=== PATIENT | male | born 1940 | race Caucasian/White ===

== ENCOUNTER 2020-10-09 17:49 | Inpatient (IN) ==
[2020-10-09] MEDS ORDERED: IOPAMIDOL 100 ML BOTTLE IV ONE (17:50)
--- NOTE | 2020-10-09 18:03 | Cat Scan Report ---
CLINICAL INFORMATION: COMPARISON: None. TECHNIQUE: 2.5 mm helical slices were obtained in the skull base to vertex. Following reconstruction, axial reformatted images were reviewed at bone and parenchymal windows. The exam was performed using radiation dose optimization techniques including, but not limited to, automated exposure control, adjustment of the mA and/or kV according to patient size and use of iterative reconstruction technique. FINDINGS: The ventricles, sulci, fissures, and cisterns are symmetrically enlarged bowel with mild age-related atrophy. No extra-axial fluid collections are identified. Patchy chronic ischemic changes in the cerebral white matter expected for age. A few remote lacunar infarcts in the basal ganglia. There is no evidence of hemorrhage, mass effect, or edema. Bone windows show no osseous abnormality. IMPRESSION: Mild atrophy and chronic ischemic changes in deep cerebral white matter with a few remote lacunar infarcts in the basal ganglia bilaterally. There is no intracerebral hemorrhage edema or other acute finding.. Interpreted and Authenticated by: Miguel Wallace 10/09/20
--- NOTE | 2020-10-09 18:15 | Cat Scan Report ---
CLINICAL INFORMATION: Code stroke COMPARISON: None. TECHNIQUE: 80 cc of Isovue-370 were injected intravenously , and using SmartPrep to maximize cerebral arterial opacification, 0.625 mm helical slices were obtained from the skull base through the cerebral vertex. Following reconstruction , sagittal, coronal and axial reformatted images were processed and reviewed at multiple windows and levels. 3D volume rendered and MIP images were acquired at a independent workstation. The exam was performed using radiation dose optimization techniques including, but not limited to, automated exposure control, adjustment of the mA and/or kV according to patient size and use of iterative reconstruction technique. FINDINGS: The intracranial internal carotid, vertebral, basilar, anterior middle and posterior cerebral arteries are well-opacified and normal in contour and caliber no evidence of significant stenosis or occlusion. IMPRESSION: Normal Interpreted and Authenticated by: Miguel Wallace 10/09/20
--- NOTE | 2020-10-09 18:24 | Cat Scan Report ---
CLINICAL INFORMATION: Code stroke COMPARISON: None. TECHNIQUE: 80 cc of Isovue-370 were injected intravenously, and using SmartPrep to maximize arterial opacification, 0.625 mm helical slices were obtained from the thoracic aortic arch through the t[place] of [place]. Following reconstruction, 2.5mm sagittal, coronal and axial reformatted images were processed and reviewed at standard and bone algorithm/window. 3-D volume rendered, CPR and MIP images were processed using a Plair work station.The exam was performed using radiation dose optimization techniques including, but not limited to, automated exposure control, adjustment of the mA and/or kV according to patient size and use of iterative reconstruction technique. FINDINGS: The thoracic aortic arch is normal in diameter with diffuse intimal thickening. Aortic branching is conventional. The brachiocephalic, both subclavian, both vertebral, both common internal and external carotid arteries are widely patent. No soft tissue abnormality. Lung apices are normal. IMPRESSION: Normal Interpreted and Authenticated by: Miguel Wallace 10/09/20
[2020-10-09 18:30] LABS: POC INR 1.3 (0.8-1.2); POC Pro Time 15.5 sec (11.9-14.5)
[2020-10-09 18:31] LABS: POC Creatinine 1.6 mg/dL (0.6-1.2)
[2020-10-09 18:48] LABS: Basophils # (Auto) 0.06 K/mcL (0.00-0.20); Basophils % (Auto) 0.8 % (0.0-2.0); Eosinophils # (Auto) 0.29 K/mcL (0.00-0.70); Eosinophils % (Auto) 3.8 % (0.0-7.0); Hematocrit 34.3 % (41.0-55.0); Hemoglobin 11.6 g/dL (13.5-16.5); Lymphocytes # (Auto) 1.91 K/mcL (1.50-4.80); Mean Cell Volume 92.2 fL (80.0-100.0); Mean Corpuscular HGB Conc 33.8 g/dL (31.0-36.0); Mean Platelet Volume 10.2 fL (7.4-10.4); Monocytes # (Auto) 0.63 K/mcL (0.10-0.90); Monocytes % (Auto) 8.2 % (1.0-12.0); Neutrophils % (Auto) 62.2 % (38.0-78.0); Platelet Count 139 K/mcL (140-440); RBC 3.72 M/mcL (4.50-5.90); Red Cell Distribution Width 12.6 % (11.5-14.5); WBC 7.6 K/mcL (4.5-11.0)
[2020-10-09 19:02] LABS: Partial Thromboplastin Time 33.5 sec (20.0-37.0)
[2020-10-09 19:10] LABS: ALT/SGPT 11 U/L (<40); AST/SGOT 15 U/L (<40); Albumin 4.5 gm/dL (3.2-5.2); Albumin/Globulin Ratio 1.7 (1.0-2.3); Alkaline Phosphatase 66 U/L (39-117); Bilirubin,Total 0.4 mg/dL (0.1-1.0); Blood Urea Nitrogen 27 mg/dL (8-23); Calcium 9.2 mg/dL (8.6-10.4); Carbon Dioxide 20 mmol/L (22-30); Chloride 102 mmol/L (96-108); Globulin 2.7 gm/dL (2.2-3.7); Glomerular Filtration Rate 46; Glucose 191 mg/dL (70-105)
[2020-10-09 19:11] LABS: INR 1.4 (0.9-1.1); Prothrombin Time 17.3 sec (11.9-14.5)
[2020-10-09] MEDS ORDERED: ASPIRIN 81 MG TAB.CHEW CHEWED ONE (19:14)
--- NOTE | 2020-10-09 19:38 | Emergency Department Note ---
HPI General Chief complaint: Stroke Symptoms Stated complaint: slurred speech Time Seen by Provider: 10/09/20 17:52 Source: patient and family Mode of arrival: ambulatory Limitations: no limitations History of Present Illness HPI Narrative: Narrative: Patient is an 80-year-old male with history of atrial fibrillation on Coumadin who presented with chief complaint of strokelike symptoms. Approximately 30 minutes prior to arrival noted that the patient started to have struggle finding words and could not type his name into his phone. She then noticed a slight droop on the right side of his face so decided bring him in for further evaluation for stroke. Patient is never had symptoms like this before. O therwise denies any other significant associated symptoms such as fever, headache, cough, shortness of breath, chest pain, nausea, vomiting, abdominal pain, changes in bowel movements or urinary symptoms. Patient actually states that he feels fine. Upon arrival in triage I was called to the bedside, and after brief history and physical exam patient was made a stroke alert and taken directly to CT scan. Initial NIHSS of 3. Related Data Previous Rx's Medication Instructions Recorded warfarin 5 mg tablet 5 mg PO QDAY #30 tab 06/16/20 carvedilol 25 mg tablet 25 mg PO TID #270 tab 07/25/20 dutasteride 0.5 mg capsule 0.5 mg PO QDAY #90 cap 07/25/20 isosorbide mononitrate 30 mg 30 mg PO QDAY #90 tab 07/25/20 tablet,extended release 24 hr metformin 500 mg tablet,extended 1,000 mg PO BID #360 tab 07/25/20 release 24hr sodium zirconium cyclosilicate 10 10 g PO QDAY #30 ea 08/02/20 gram oral powder packet glipizide 10 mg tablet 20 mg PO BID #360 tab 08/25/20 pioglitazone 15 mg tablet 15 mg PO QDAY #90 tab 08/25/20 simvastatin 40 mg tablet 40 mg PO QHS #90 tab 08/25/20 tamsulosin 0.4 mg capsule 0.8 mg PO QDAY #180 cap 08/25/20 cyanocobalamin (vitamin B-12) 1,000 mcg PO QDAY #30 cap 08/31/20 1,000 mcg capsule Allergies Allergy/AdvReac Type Severity Reaction Status Date / Time No Known Drug Allergies Allergy Verified 10/09/20 17:55 Review of Systems ROS ROS Narrative: Narrative: All systems ED: reviewed and negative except as stated. 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) Hypertension in stage 3 chronic kidney disease due to type 2 diabetes mellitus (Chronic) Chronic kidney disease, stage 3a (Chronic) Atrial fibrillation (Chronic) Cancer (Chronic) History of left hip replacement (Chronic ~2002) History of open heart surgery (Chronic ~2008) Diabetes mellitus with neuropathy (Chronic) CAD (coronary artery disease) (Chronic) Warfarin anticoagulation (Chronic) BPH (benign prostatic hyperplasia) (Chronic) Medicare annual wellness visit, initial (Acute) Hyperkalemia (Chronic) Neck pain (Acute) Atherosclerosis of aorta (Acute) Angina pectoris, unspecified (Acute) Hypercholesterolemia (Acute) 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) Colon polyp (Acute) MCC current use of anticoagulant therapy (Chronic) Arthralgia of shoulder (Acute) Anemia (Chronic) Feared condition not demonstrated (Acute) Alteration in lab values (Acute) Medical History Anemia Angina pectoris, unspecified Arthralgia of shoulder Atherosclerosis of aorta Atrial fibrillation BPH (benign prostatic hyperplasia) CAD (coronary artery disease) Cancer colon 2009 Colon polyp 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 Diabetes mellitus with neuropathy Epistaxis Hypercholesterolemia Hyperkalemia terminal carman current use of anticoagulant therapy Medicare annual wellness visit, initial Neck pain Warfarin anticoagulation Surgical History History of colonoscopy (09/01/12) and EGD History of coronary artery bypass graft History of left hip replacement (~2002) History of open heart surgery (~2008) Family History Father Type 2 diabetes mellitus Mother Type 2 diabetes mellitus Social History Smoking Status: Never smoker Alcohol Intake Frequency: does not drink Substance Use: does not use Exam Narrative Narrative: Narrative: Patient is sitting up in bed, answering questions appropriately except for when he gets stuck on a word. He does not appear to be in acute discomfort or distress. General Limitations: no limitations Head Head: Present atraumatic and normocephalic Eye Eye: Present normal appearance, PERRL and EOMI; Absent scleral icterus and conjunctival injection ENT ENT: Present normal oropharynx and mucous membranes moist Neck Neck: Present full ROM and trachea midline; Absent tenderness and lymphadenopathy Chest Chest: Present symmetric chest wall rise Respiratory Respiratory: Present normal lung sounds bilaterally; Absent respiratory distress, rales/crackles, wheezes, stridor and accessory muscle use Cardiovascular Cardiovascular: Present regular rate and normal rhythm; Absent systolic murmur and diastolic murmur Adbominal Abdominal: Present soft; Absent tenderness, guarding, rebound, rigidity and mass Extremities Extremities: Absent pedal edema, pretibial edema and calf tenderness Back Back: Absent CVA tenderness (R), CVA tenderness (L) and spinous process ten derness Neurological Neurological: Present alert and oriented X3 Expanded Neurological Patient oriented to: Present person, place and time Speech: Present expressive aphasia CRANIAL NERVES: EOM function (II, III, IV, ): Normal, facial sensation (V): Normal, facial palsy (VII): Abnormal Right (Slight facial droop on the right compared to the left), gag reflex (IX): Normal, spinal accessory function (XI): Normal and tongue deviation (XII): Normal CEREBELLAR FUNCTION: finger to nose: Normal and heel to stanley: Normal Motor strength - LUE: 5/5 Motor strength - RUE: 5/5 Motor strength - LLE: 5/5 Motor strength - RLE: 5/5 UPPER MOTOR NEURON EXAM: pronator drift: Normal SENSORY EXAM UPPER EXTREMITY: Normal: light touch SENSORY EXAM LOWER EXTREMITY: Normal: light touch Psychiatric Psychiatric: Present normal affect and normal mood Skin Skin: Present warm (WNL) and dry Course Vital Signs Vital signs: Vital Signs Temperature 97.1 F 10/09/20 17:50 Pulse Rate 94 H 10/09/20 17:50 Respiratory Rate 18 10/09/20 17:50 Blood Pressure 150/101 10/09/20 17:50 Pulse Oximetry (%) 96 10/09/20 17:50 Temperature 97.1 F 10/09/20 17:50 Pulse Rate 92 H 10/09/20 20:01 Respiratory Rate 16 10/09/20 20:01 Blood Pressure 152/97 10/09/20 20:01 Pulse Oximetry (%) 98 10/09/20 20:01 [facility] MDM Narrative Medical decision making narrative: Narrative: Patient is an 80-year-old male who presented with chief complaint of strokelike symptoms. Patient was within the window for TPA, though his history of Coumadin age this did put him at increased risk for possible intracranial bleeding with TPA. Even so, patient was seen and evaluated by myself and then stroke neurologist was consulted. They stated that the CT and CTA were unremarkable on their exam, and our radiologist concurred with this. We are waiting for the INR to return to see if he was a potential candidate for TPA. This came back at 1.3, and I discussed this with the stroke neurologist Dr. Sneed. She stated that while he does have risk considering age and Coumadin use 10 she could be a candidate if the symptoms were concerning enough. I did go to the bedside and discussed this with the patient, family members including his and son. I e xplained to them the potential risks of no intervention versus intervention, including the risk of potential intracranial bleed and . After long discussion about the risks and benefits, and with the patient having minimal symptoms at this time and no significant worsening and in fact feeling somewhat better they have elected to not do TPA. I do believe this is a very reasonable decision given his current presentation as well as his risk factors. The stroke neurologist recommended then that he be admitted to the hospital for MRI and continued work-up and management. Lab Data Result diagrams: 10/09/20 17:56 10/09/20 17:56 Labs: Lab Results 10/09/20 10/09/20 10/09/20 Range/Units 17:56 17:56 17:56 WBC 7.6 (4.5-11.0) K/mcL RBC 3.72 L (4.50-5.90) M/mcL Hgb 11.6 L (13.5-16.5) g/dL Hct 34.3 L (41.0-55.0) % MCV 92.2 (80.0-100.0) fL MCH 31.2 (26.0-34.0) pg MCHC 33.8 (31.0-36.0) g/dL RDW 12.6 (11.5-14.5) % Plt Count 139 L (140-440) K/mcL MPV 10.2 (7.4-10.4) fL Neut % (Auto) 62.2 (38.0-78.0) % Lymph % (Auto) 25.0 (15.0-49.0) % [place] % (Auto) 8.2 (1.0-12.0) % Eos % (Auto) 3.8 (0.0-7.0) % Baso % (Auto) 0.8 (0.0-2.0) % Lymph # (Auto) 1.91 (1.50-4.80) K/mcL [place] # (Auto) 0.63 (0.10-0.90) K/mcL Eos # (Auto) 0.29 (0.00-0.70) K/mcL Baso # (Auto) 0.06 (0.00-0.20) K/mcL Absolute Neutrophils 4.75 (1.80-8.00) K/mcL POC PT 15.5 H (11.9-14.5) sec PT 17.3 H (11.9-14.5) sec POC INR 1.3 H (0.8-1.2) INR 1.4 H (0.9-1.1) APTT 33.5 (20.0-37.0) sec Sodium 135 (133-145) mmol/L Potassium 5.1 (3.3-5.1) mmol/L Chloride 102 (96-108) mmol/L Carbon Dioxide 20 L (22-30) mmol/L Anion Gap 13.0 (8.0-16.0) BUN 27 H (8-23) mg/dL Creatinine 1.4 H (0.7-1.2) mg/dL POC Creatinine 1.6 H (0.6-1.2) mg/dL GFR Calculation 46 Glucose 191 H (70-105) mg/dL Calcium 9.2 (8.6-10.4) mg/dL Total Bilirubin 0.4 (0.1-1.0) mg/dL AST 15 (<40) U/L ALT 11 (<40) U/L Alkaline Phosphatase 66 (39-117) U/L Troponin T (<0.03) ng/mL Total Protein 7.2 (5.9-8.4) gm/dL Albumin 4.5 (3.2-5.2) gm/dL Globulin 2.7 (2.2-3.7) gm/dL Albumin/Globulin Ratio 1.7 (1.0-2.3) Urine Color Urine Appearance (Clear) Urine pH (5.0-9.0) Ur Specific [place] (1.000-1.035) Urine Protein (Negative) mg/dL Urine Glucose (UA) (Negative) mg/dL Urine Ketones (Negative) mg/dL Urine Occult Blood (Negative) mg/dL Urine Nitrate (Negative) Urine Bilirubin (Negative) mg/dL Urine Urobilinogen mg/dL Ur Leukocyte Esterase (Negative) /ug Ur Culture Indicated? 10/09/20 10/09/20 Range/Units 17:56 19:58 WBC (4.5-11.0) K/mcL RBC (4.50-5.90) M/mcL Hgb (13.5-16.5) g/dL Hct (41.0-55.0) % MCV (80.0-100.0) fL MCH (26.0-34.0) pg MCHC (31.0-36.0) g/dL RDW (11.5-14.5) % Plt Count (140-440) K/mcL MPV (7.4-10.4) fL Neut % (Auto) (38.0-78.0) % Lymph % (Auto) (15.0-49.0) % [place] % (Auto) (1.0-12.0) % Eos % (Auto) (0.0-7.0) % Baso % (Auto) (0.0-2.0) % Lymph # (Auto) (1.50-4.80) K/mcL [place] # (Auto) (0.10-0.90) K/mcL Eos # (Auto) (0.00-0.70) K/mcL Baso # (Auto) (0.00-0.20) K/mcL Absolute Neutrophils (1.80-8.00) K/mcL POC PT (11.9-14.5) sec PT (11.9-14.5) sec POC INR (0.8-1.2) INR (0.9-1.1) APTT (20.0-37.0) sec Sodium (133-145) mmol/L Potassium (3.3-5.1) mmol/L Chloride (96-108) mmol/L Carbon Dioxide (22-30) mmol/L Anion Gap (8.0-16.0) BUN (8-23) mg/dL Creatinine (0.7-1.2) mg/dL POC Creatinine (0.6-1.2) mg/dL GFR Calculation Glucose (70-105) mg/dL Calcium (8.6-10.4) mg/dL Total Bilirubin (0.1-1.0) mg/dL AST (<40) U/L ALT (<40) U/L Alkaline Phosphatase (39-117) U/L Troponin T < 0.01 (<0.03) ng/mL Total Protein (5.9-8.4) gm/dL Albumin (3.2-5.2) gm/dL Globulin (2.2-3.7) gm/dL Albumin/Globulin Ratio (1.0-2.3) Urine Color Yellow Urine Appearance Clear (Clear) Urine pH 6.0 (5.0-9.0) Ur Specific [place] 1.019 (1.000-1.035) Urine Protein Negative (Negative) mg/dL Urine Glucose (UA) Negative (Negative) mg/dL Urine Ketones Negative (Negative) mg/dL Urine Occult Blood Negative (Negative) mg/dL Urine Nitrate Negative (Negative) Urine Bilirubin Negative (Negative) mg/dL Urine Urobilinogen Negative mg/dL Ur Leukocyte Esterase Negative (Negative) /ug Ur Culture Indicated? No CC TIME Critical Care Time Critical Care Time: Yes Total Critical Care Time: 55 Discharge Plan Patient/Caregiver Discharge Instructions Pt seen by COMMERCIAL CONSTRUCTION PROJECT MANAGER/PA only: No Clinical Impression: Stroke-like symptoms Patient Disposition: Xfer As Inpt ([facility]) Condition: Fair Follow up with: Alejandro Rivas MD [Primary Care Provider] - Prescriptions: No Action dutasteride 0.5 mg capsule 0.5 mg PO QDAY Qty: 90 RF: 1 isosorbide mononitrate 30 mg tablet extended release 24 hr 30 mg PO QDAY Qty: 90 RF: 1 metformin 500 mg tablet extended release 24hr 1,000 mg PO BID Qty: 360 RF: 1 carvedilol 25 mg tablet 25 mg PO TID Qty: 270 RF: 1 cyanocobalamin (vitamin B-12) 1,000 mcg capsule 1,000 mcg PO QDAY Qty: 30 RF: 2 warfarin 5 mg tablet 5 mg PO QDAY Qty: 30 RF: 2 simvastatin 40 mg tablet 40 mg PO QHS Qty: 90 RF: 1 glipizide 10 mg tablet 20 mg PO BID Qty: 360 RF: 1 tamsulosin 0.4 mg capsule 0.8 mg PO QDAY Qty: 180 RF: 1 pioglitazone 15 mg tablet 15 mg PO QDAY Qty: 90 RF: 1 Lokelma 10 gram powder in packet 10 g PO QDAY Qty: 30 RF: 4
[2020-10-09 20:50] LABS: Appearance,Urine CLEAR (Clear); Bilirubin,Urine Negative (Negative); Color,Urine YELLOW; Culture Indicated,Urine No; Glucose,Urine (UA) Negative (Negative); Ketones,Urine Negative (Negative); Leukocyte Esterase,Urine Negative /ug (Negative); Nitrate,Urine Negative (Negative); Protein,Urine Negative (Negative); Specific Gravity,Urine 1.019 (1.000-1.035); Urine Blood Negative (Negative); Urobilinogen,Urine Negative
--- NOTE | 2020-10-09 21:08 | Internal Med History&Physical ---
HPI History of Present Illness Patient information: Note initiated : 10/09/20 at 9:05 pm Service Date, if different from initiated Date: [] Patient: Lalo Stern a 80 y/o M admitted on for slurred speech. Chief Complaint: [] History of present illness: Mr. Stern is a 80 year old M Presents the ED with slurred speech right facial droop and some memory issues per the . About 45 minutes prior to arrival. States that he also lost the ability to think. Patient does carry history of atrial fibrillation and is on warfarin. In the ED on arrival he did have an elevated blood pressure. Lab work was essentially unremarkable. 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 CTA head neck unremarkable. Case was discussed with stroke neurologist and since patient was within the window for TPA further discussion with the family was undertaken, his INR was sub-therapeutic at one-point. Because the symptoms were mild family decided on no TPA is reasonable given the mild symptoms. 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 Review of Systems: Pertinent positives as above. Denies headache/fever/chills/nausea/vomiting/chest or abdominal pain/cough/dyspnea/diarrhea. Remaining 10 point review of system reviewed negative. 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) Hypertension in stage 3 chronic kidney disease due to type 2 diabetes mellitus (Chronic) Chronic kidney disease, stage 3a (Chronic) Atrial fibrillation (Chronic) Cancer (Chronic) History of left hip replacement (Chronic ~2002) History of open heart surgery (Chronic ~2008) Diabetes mellitus with neuropathy (Chronic) CAD (coronary artery disease) (Chronic) Warfarin anticoagulation (Chronic) BPH (benign prostatic hyperplasia) (Chronic) Medicare annual wellness visit, initial (Acute) Hyperkalemia (Chronic) Neck pain (Acute) Atherosclerosis of aorta (Acute) Angina pectoris, unspecified (Acute) Hypercholesterolemia (Acute) 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) Colon polyp (Acute) alf current use of anticoagulant therapy (Chronic) Arthralgia of shoulder (Acute) Anemia (Chronic) Feared condition not demonstrated (Acute) Alteration in lab values (Acute) Medical History Anemia Angina pectoris, unspecified Arthralgia of shoulder Atherosclerosis of aorta Atrial fibrillation BPH (benign prostatic hyperplasia) CAD (coronary artery disease) Cancer colon 2009 Colon polyp 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 Diabetes mellitus with neuropathy Epistaxis Hypercholesterolemia Hyperkalemia alf current use of anticoagulant therapy Medicare annual wellness visit, initial Neck pain Warfarin anticoagulation Surgical History History of colonoscopy (09/01/12) and EGD History of coronary artery bypass graft History of left hip replacement (~2002) History of open heart surgery (~2008) Family History Father Type 2 diabetes mellitus Mother Type 2 diabetes mellitus Social History marital status: occupational status: employed occupation: [employer] smoking status: Never smoker alcohol intake frequency: does not drink substance use type: does not use MEDS/ALLERGIES Home Medications and Allergies Home Medications Medication Instructions Recorded Confirmed Type warfarin 5 mg tablet 5 mg PO QDAY #30 tab 06/16/20 08/25/20 Rx carvedilol 25 mg tablet 25 mg PO TID #270 tab 07/25/20 08/25/20 Rx dutasteride 0.5 mg capsule 0.5 mg PO QDAY #90 cap 07/25/20 08/25/20 Rx isosorbide mononitrate 30 mg 30 mg PO QDAY #90 tab 07/25/20 08/25/20 Rx tablet,extended release 24 hr metformin 500 mg tablet,extended 1,000 mg PO BID #360 tab 07/25/20 08/25/20 Rx release 24hr sodium zirconium cyclosilicate 10 10 g PO QDAY #30 ea 08/02/20 08/25/20 Rx gram oral powder packet glipizide 10 mg tablet 20 mg PO BID #360 tab 08/25/20 08/25/20 Rx pioglitazone 15 mg tablet 15 mg PO QDAY #90 tab 08/25/20 08/25/20 Rx simvastatin 40 mg tablet 40 mg PO QHS #90 tab 08/25/20 08/25/20 Rx tamsulosin 0.4 mg capsule 0.8 mg PO QDAY #180 cap 08/25/20 08/25/20 Rx cyanocobalamin (vitamin B-12) 1,000 mcg PO QDAY #30 cap 08/31/20 Rx 1,000 mcg capsule Allergies Allergy/AdvReac Type Severity Reaction Status Date / Time No Known Drug Allergies Allergy Verified 10/09/20 17:55 EXAM Constitutional Vitals: Temp Pulse Resp BP Pulse Ox 97.1 F 77 15 147/83 97 10/09/20 17:50 10/09/20 21:00 10/09/20 21:00 10/09/20 21:00 10/09/20 21:00 Exam: General: Alert, Awake, No acute Distress Eyes/N/T: EOMI, PERRL, dry MM Head/Neck: neck supple, atraumatic CV: irreg irreg, No murmurs, normal s1/s2 Pulm: Clear b/l, no wheezing/rhonchi/rales Abd: soft, nontender, +BS x4 Ext: no clubbing/cyanosis/edema Neuro: Alert, minimal right facial droop, speech clear, moves all extremities, CN 2-12 grossly intact, symmetrical strength b/l upper/lower, sensations intact b/l upper/lower. No pronator drift Skin: warm/dry DATA Data Completed and Pending Labs: Labs from last 24 hours 10/09/20 10/09/20 10/09/20 19:58 17:56 17:56 WBC RBC Hgb Hct MCV MCH MCHC RDW Plt Count MPV Neut % (Auto) Lymph % (Auto) [place] % (Auto) Eos % (Auto) Baso % (Auto) Lymph # (Auto) [place] # (Auto) Eos # (Auto) Baso # (Auto) Absolute Neutrophils POC PT PT POC INR INR APTT Sodium 135 Potassium 5.1 Chloride 102 Carbon Dioxide 20 L Anion Gap 13.0 BUN 27 H Creatinine 1.4 H POC Creatinine 1.6 H GFR Calculation 46 Glucose 191 H Calcium 9.2 Total Bilirubin 0.4 AST 15 ALT 11 Alkaline Phosphatase 66 Troponin T < 0.01 Total Protein 7.2 Albumin 4.5 Globulin 2.7 Albumin/Globulin Ratio 1.7 Urine Color Yellow Urine Appearance Clear Urine pH 6.0 Ur Specific [place] 1.019 Urine Protein Negative Urine Glucose (UA) Negative Urine Ketones Negative Urine Occult Blood Negative Urine Nitrate Negative Urine Bilirubin Negative Urine Urobilinogen Negative Ur Leukocyte Esterase Negative Ur Culture Indicated? No 10/09/20 10/09/20 17:56 17:56 WBC 7.6 RBC 3.72 L Hgb 11.6 L Hct 34.3 L MCV 92.2 MCH 31.2 MCHC 33.8 RDW 12.6 Plt Count 139 L MPV 10.2 Neut % (Auto) 62.2 Lymph % (Auto) 25.0 [place] % (Auto) 8.2 Eos % (Auto) 3.8 Baso % (Auto) 0.8 Lymph # (Auto) 1.91 [place] # (Auto) 0.63 Eos # (Auto) 0.29 Baso # (Auto) 0.06 Absolute Neutrophils 4.75 POC PT 15.5 H PT 17.3 H POC INR 1.3 H INR 1.4 H APTT 33.5 Sodium Potassium Chloride Carbon Dioxide Anion Gap BUN Creatinine POC Creatinine GFR Calculation Glucose Calcium Total Bilirubin AST ALT Alkaline Phosphatase Troponin T Total Protein Albumin Globulin Albumin/Globulin Ratio Urine Color Urine Appearance Urine pH Ur Specific [place] Urine Protein Urine Glucose (UA) Urine Ketones Urine Occult Blood Urine Nitrate Urine Bilirubin Urine Urobilinogen Ur Leukocyte Esterase Ur Culture Indicated? A/P Narrative A/P Narrative: A: *TIA/CVA (h/o CVA per CT): Right facial droop & confusion (improving) -CTA head/neck unremarkable -ABCD=6 *PAFib: On warfarin which is subtherapeutic and on Coreg *DM: *CKD III: *Anemia, chronic: B12 deficiency + CKD *CAD w/CABG: Do not see ASA on home med list, is on statin/BB/Imdur *HTN/HLD: * P: -switch warfarin to Eliquis, Statin -Permissive hypertension 24-48hrs -MRI pending -PT/OT -cont BB/Imdur -SSI - -ppx: eliquis DNR Time Spent With Patient Time: Total time spent is greater than 50% in coordination of care (as docu mented) at patient's floor/unit and/or counseling patient: QUALITY Stroke Symptom Onset Unknown: No
[2020-10-09] MEDS ORDERED: POTASSIUM CHLORIDE 20 MEQ TABLET PO PRN ×2 (22:26)
[2020-10-09] MEDS ORDERED: DEXTROSE 50% 50 ML VIAL IV PRN (22:26)
[2020-10-09] MEDS ORDERED: DEXTROSE 31 GM ORAL.SUSP PO PRN (22:26)
[2020-10-09] MEDS ORDERED: LABETALOL 5 MG/ML ML IV PRN (22:26)
[2020-10-09] MEDS ORDERED: POTASSIUM CHLORIDE 40 MEQ in DEXTROSE 5% IN WATER 500 ML IV PRN (22:26)
[2020-10-09] MEDS ORDERED: METOPROLOL TARTRATE 5 MG/5 ML VIAL IV PRN (22:26)
[2020-10-09] MEDS ORDERED: 0.9 % SODIUM CHLORIDE 1,000 ML IV SCH (22:26)
[2020-10-09] MEDS ORDERED: SENNOSIDES 1 TABLET PO PRN (22:26)
[2020-10-09] MEDS ORDERED: ONDANSETRON 4 MG/2 ML VIAL IV PRN (22:26)
[2020-10-09] MEDS ORDERED: POLYETHYLENE GLYCOL 3350 17 GM PACKET PO PRN (22:26)
[2020-10-09] MEDS ORDERED: MAGNESIUM SULFATE 2 GM/50 ML BAG IV PRN (22:26)
[2020-10-09] MEDS ORDERED: ACETAMINOPHEN 325 MG TABLET PO PRN (22:26)
[2020-10-09] MEDS ORDERED: APIXABAN 5 MG TABLET PO ONE (22:45)
[2020-10-09 23:04] LABS: Hemoglobin A1C 8.1 % Hgb (4.0-6.0)
[2020-10-09] MEDS: ATORVASTATIN 40 MG TABLET PO SCH (23:27)
[2020-10-09] MEDS: 0.9 % SODIUM CHLORIDE 10 ML SYRINGE IV SCH (23:28)
[2020-10-09] MEDS: APIXABAN 5 MG TABLET PO SCH (23:28)
[2020-10-10] MEDS: INSULIN LISPRO 1 UNIT/0.01 ML UNIT SQ SCH ×3 (07:31→17:03)
--- NOTE | 2020-10-10 08:22 | Internal Med Progress Note ---
SUBJECTIVE Subjective Patient information: Note initiated : 10/10/20 at 8:18 am Service Date, if different from initiated Date: [] Patient: Lalo Stern a 80 y/o M admitted on 10/09/20 for slurred speech. Chief Complaint: [] Interval history: History of present illness: Mr. Stern is a 80 year old M Presents the ED with slurred speech right facial droop and some memory issues per the . About 45 minutes prior to arrival. States that he also lost the ability to think. Patient does carry history of atrial fibrillation and is on warfarin. In the ED on arrival he did have an elevated blood pressure. Lab work was essentially unremarkable. 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 CTA head neck unremarkable. Case was discussed with stroke neurologist and since patient was within the window for TPA further discussion with the family was undertaken, his INR was sub-therapeutic at one-point. Because the symptoms were mild family decided on no TPA is reasonable given the mild symptoms. 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 10/10 Patient feeling good today. No overnight event or new complaints. Gradually starting his blood pressure medication back at lower dose. Review of Systems: denies headache/fever/chills/nausea/vomiting/chest or abdominal pain/cough/dyspnea/diarrhea. Otherwise see above. Constitutional Vitals: Vital Signs Temp Pulse Resp BP Pulse Ox 99 F 84 18 152/94 99 10/10/20 04:00 10/10/20 08:01 10/10/20 08:03 10/10/20 08:01 10/10/20 08:01 Period Temp Pulse Resp BP Sys/Mills Pulse Ox Last 24 Hr 96.8 F-99 F 75-101 13-20 119-191/76-140 91-100 Intake and Output 10/09/20 10/10/20 10/10/20 21:59 05:59 13:59 Intake Total 1000 Output Total 800 Balance 200 Weight 77.111 kg 77.111 kg Intake & Output: Intake & Output 10/09/20 10/10/20 10/10/20 21:59 05:59 13:59 Intake Total 1000 Output Total 800 Balance 200 Weight 77.111 kg 77.111 kg Intake: IV 1000 Sodium Chloride 0.9% 1,000 ml @ 1000 150 mls/hr IV .Q6H40M [facility] Rx#: [id number] Output: Void Amount 800 Other: Urine Appearance Clear Urine Color Pale Urine Odor Normal Exam: General: Alert, Awake, No acute Distress Eyes/N/T: EOMI, Head/Neck: neck supple, atraumatic CV: irreg irreg, No murmurs, Pulm: Clear b/l, no wheezing/rhonchi/rales Abd: soft, nontender, +BS x4 Ext: no clubbing/cyanosis/edema Neuro: Alert, slight right facial droop, speech clear, moves all extremities, symmetrical strength b/l upper/lower, Skin: warm/dry OBJ DATA Labs CBC & Chem 7: 10/09/20 17:56 10/09/20 17:56 Labs: Abnormal Lab Results 10/09/20 10/09/20 10/09/20 22:30 17:56 17:56 RBC Hgb Hct Plt Count POC PT 15.5 H PT 17.3 H POC INR 1.3 H INR 1.4 H Carbon Dioxide 20 L BUN 27 H Creatinine 1.4 H POC Creatinine 1.6 H Glucose 191 H Hemoglobin A1c 8.1 H Triglycerides 156 H 10/09/20 17:56 RBC 3.72 L Hgb 11.6 L Hct 34.3 L Plt Count 139 L POC PT PT POC INR INR Carbon Dioxide BUN Creatinine POC Creatinine Glucose Hemoglobin A1c Triglycerides Meds: Medications Acetaminophen (Acetaminophen 325 Mg Tablet) 650 mg PO Q6HP PRN PRN Reason: PAIN/FEVER > 101 Apixaban (Apixaban 5 Mg Tablet) 5 mg PO BID [facility] Last Admin: 10/09/20 23:28 Dose: 5 mg Documented by: Atorvastatin Calcium (Atorvastatin 40 Mg Tablet) 80 mg PO [facility] Last Admin: 10/09/20 23:27 Dose: 80 mg Documented by: Dextrose (Dextrose 50% 50 Ml Vial) 0 ml IV UD PRN PRN Reason: Hypoglycemia Diagnostic Test (Pha) (Accu-Chek 1 Each Strip) 1 each FS ACHS [facility] Last Admin: 10/10/20 07:13 Dose: 1 each Documented by: Glucose (Dextrose 31 Gm Oral.Susp) 15 gm PO PRN PRN PRN Reason: Hypoglycemia Potassium Chloride 40 meq/ (Dextrose) 520 mls @ 130 mls/hr IV UD PRN PRN Reason: Potassium < 3 Magnesium Sulfate (Magnesium Sulfate) 2 gm in 50 mls @ 50 mls/hr IV UD PRN PRN Reason: Magnesium </= 1.6 Insulin Human Lispro (Insulin Lispro 1 Unit/0.01 Ml Unit) 0 unit SQ ACHS [facility]; Protocol Last Admin: 10/10/20 07:31 Dose: Not Given Documented by: Labetalol HCl (Labetalol 5 Mg/Ml Ml) 0 mg IV Q2HP PRN PRN Reason: Hypertension Metoprolol Tartrate (Metoprolol Tartrate 5 Mg/5 Ml Vial) 5 mg IV Q2HP PRN PRN Reason: Tachyarrhythmias HR>110 Ondansetron HCl (Ondansetron 4 Mg/2 Ml Vial) 4 mg IV Q4HP PRN PRN Reason: Nausea And Vomiting Polyethylene Glycol (Polyethylene Glycol 3350 17 Gm Packet) 17 gm PO DAILYP PRN PRN Reason: Constipation Potassium Chloride (Potassium Chloride 20 Meq Tablet) 40 meq PO UD PRN PRN Reason: Potssium is 3-3.5 Potassium Chloride (Potassium Chloride 20 Meq Tablet) 40 meq PO UD PRN PRN Reason: Potassium < 3 Senna (Sennosides 1 Tablet) 2 tab PO DAILYP PRN PRN Reason: Constipation Sodium Chloride (0.9 % Sodium Chloride 10 Ml Syringe) 10 ml IV Q8 [facility] Last Admin: 10/09/20 23:28 Dose: 10 ml Documented by: A/P Narrative A/P Narrative: A: *TIA (h/o CVA per CT): Right facial droop & confusion (improving) -CTA head/neck unremarkable, MRI no acute infarct -ABCD=6 *PAFib: On warfarin which is subtherapeutic and on Coreg *DM: *CKD III: *Anemia, chronic: B12 deficiency + CKD *CAD w/CABG: Do not see ASA on home med list, is on statin/BB/Imdur *HTN/HLD: * P: -switched warfarin to Eliquis, Statin -Permissive hypertension 24-48hrs -start BP med back gradually, started BB back at lower dose for today -PT/OT -cont BB/Imdur -SSI - -ppx: eliquis DNR Time Spent With Patient Time: Total time spent is greater than 50% in coordination of care (as anibal montero) at patient's floor/unit and/or counseling patient: QUALITY Stroke Onset of Symptoms Date: 10/09/20 Onset of Symptoms Time: 17:00 Symptom Onset Unknown: No VTE Deep Vein Thrombosis/Pulmonary Embolism Present on Admission: No
[2020-10-10] MEDS: 0.9 % SODIUM CHLORIDE 10 ML SYRINGE IV SCH ×3 (08:35→22:00)
[2020-10-10] MEDS: APIXABAN 5 MG TABLET PO SCH ×3 (09:22→20:38)
[2020-10-10] MEDS: CYANOCOBALAMIN (VITAMIN B-12) 500 MCG TABLET PO SCH (09:22)
[2020-10-10] MEDS: DUTASTERIDE 0.5 MG CAPSULE PO SCH (09:22)
[2020-10-10] MEDS: glipiZIDE 5 MG TABLET PO SCH ×2 (09:22→17:04)
[2020-10-10] MEDS: PIOGLITAZONE 15 MG TABLET PO SCH (09:22)
[2020-10-10] MEDS: metFORMIN 500 MG TAB.XL.24H PO SCH ×2 (09:30→17:10)
[2020-10-10] MEDS: ISOSORBIDE MONONITRATE 30 MG TAB.XL.24H PO SCH (09:40)
--- NOTE | 2020-10-10 12:24 | Discharge Summary ---
Discharge Provider Provider Patient information: Note initiated : 10/10/20 at 12:22 pm Service Date, if different from initiated Date: [] Patient: Lalo Stern 80 y/o M admitted on 10/09/20 for slurred speech. Chief Complaint: [] Date of admission: 10/09/20 22:03 Discharge date: 10/11/20 Primary care physician: Alejandro Rivas MD Consults: 10/09/20 Consult to Physician [CONS] Stat Comment: Consulting Provider: Ovidio Roche Reason For Exam: Physician to Consult Discharge Meds Discharge Medications Home Medications dutasteride 0.5 mg capsule 0.5 mg PO QDAY #90 cap 07/25/20 [Rx Confirmed 10/09/20 Last Taken Unknown] isosorbide mononitrate 30 mg tablet,extended release 24 hr 30 mg PO QDAY #90 tab 07/25/20 [Rx Confirmed 10/09/20 Last Taken Unknown] metformin 500 mg tablet,extended release 24hr 1,000 mg PO BID #360 tab 07/25/20 [Rx Confirmed 10/09/20 Last Taken Unknown] glipizide 10 mg tablet 20 mg PO BID #360 tab 08/25/20 [Rx Confirmed 10/09/20 Last Taken Unknown] pioglitazone 15 mg tablet 15 mg PO QDAY #90 tab 08/25/20 [Rx Confirmed 10/09/20 Last Taken Unknown] simvastatin 40 mg tablet 40 mg PO QHS #90 tab 08/25/20 [Rx Confirmed 10/09/20 Last Taken Unknown] cyanocobalamin (vitamin B-12) 1,000 mcg capsule 1,000 mcg PO QDAY #30 cap 08/31/20 [Rx Confirmed 10/09/20 Last Taken Unknown] tamsulosin 0.8 mg PO HS 10/09/20 [History Confirmed 10/09/20 Last Taken Unknown] apixaban [Eliquis] 5 mg PO BID #60 tab 10/10/20 [Rx Last Taken Unknown] carvedilol 25 mg PO BID #270 tab 10/10/20 [Rx Last Taken Unknown] COURSE Hospital Course Hospital course: Interval history: History of present illness: Mr. Stern is a 80 year old M Presents the ED with slurred speech right facial droop and some memory issues per the . About 45 minutes prior to arrival. States that he also lost the ability to think. Patient does carry history of atrial fibrillation and is on warfarin. In the ED on arrival he did have an elevated blood pressure. Lab work was essentially unremarkable. 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 CTA head neck unremarkable. Case was discussed with stroke neurologist and since patient was within the wind ow for TPA further discussion with the family was undertaken, his INR was sub- therapeutic at one-point. Because the symptoms were mild family decided on no TPA is reasonable given the mild symptoms. 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 10/10 Patient feeling good today. No overnight event or new complaints. Gradually starting his blood pressure medication back at lower dose. 10/11 Feeling well. No new complaints. A: *TIA (h/o CVA per CT): Right facial droop & confusion (resolved) -CTA head/neck unremarkable, MRI no acute infarct -ABCD=6 *PAFib: On warfarin which is subtherapeutic and on Coreg *DM: *CKD III: *Anemia, chronic: B12 deficiency + CKD *CAD w/CABG: Do not see ASA on home med list, is on statin/BB/Imdur *HTN/HLD: * Discharge diagnosis: TIA subtherapeutic INR Secondary discharge diagnosis: Patient to be A. fib chronic kidney disease diabetes anemia CAD hypertension Time Spent with Patient Time attestation: Total time spent providing and/or coordinating discharge services: Time spent: Greater than 30 minutes EXAM Constitutional Vitals: Temp Pulse Resp BP Pulse Ox 99 F 84 18 152/94 99 10/10/20 04:00 10/10/20 08:01 10/10/20 08:03 10/10/20 08:01 10/10/20 08:01 Discharge Data Data Completed and Pending Labs on day of discharge: Labs from last 24 hours 10/09/20 10/09/20 10/09/20 22:30 19:58 17:56 WBC RBC Hgb Hct MCV MCH MCHC RDW Plt Count MPV Neut % (Auto) Lymph % (Auto) [place] % (Auto) Eos % (Auto) Baso % (Auto) Lymph # (Auto) [place] # (Auto) Eos # (Auto) Baso # (Auto) Absolute Neutrophils POC PT PT POC INR INR APTT Sodium Potassium Chloride Carbon Dioxide Anion Gap BUN Creatinine POC Creatinine GFR Calculation Glucose Hemoglobin A1c 8.1 H Estim Average Glucose 186 Calcium Total Bilirubin AST ALT Alkaline Phosphatase Troponin T < 0.01 Total Protein Albumin Globulin Albumin/Globulin Ratio Triglycerides 156 H Cholesterol 139 LDL Cholesterol, Calc 54 Non-HDL Cholesterol 85 HDL Cholesterol 54 Urine Color Yellow Urine Appearance Clear Urine pH 6.0 Ur Specific [place] 1.019 Urine Protein Negative Urine Glucose (UA) Negative Urine Ketones Negative Urine Occult Blood Negative Urine Nitrate Negative Urine Bilirubin Negative Urine Urobilinogen Negative Ur Leukocyte Esterase Negative Ur Culture Indicated? No 10/09/20 10/09/20 10/09/20 17:56 17:56 17:56 WBC 7.6 RBC 3.72 L Hgb 11.6 L Hct 34.3 L MCV 92.2 MCH 31.2 MCHC 33.8 RDW 12.6 Plt Count 139 L MPV 10.2 Neut % (Auto) 62.2 Lymph % (Auto) 25.0 [place] % (Auto) 8.2 Eos % (Auto) 3.8 Baso % (Auto) 0.8 Lymph # (Auto) 1.91 [place] # (Auto) 0.63 Eos # (Auto) 0.29 Baso # (Auto) 0.06 Absolute Neutrophils 4.75 POC PT 15.5 H PT 17.3 H POC INR 1.3 H INR 1.4 H APTT 33.5 Sodium 135 Potassium 5.1 Chloride 102 Carbon Dioxide 20 L Anion Gap 13.0 BUN 27 H Creatinine 1.4 H POC Creatinine 1.6 H GFR Calculation 46 Glucose 191 H Hemoglobin A1c Estim Average Glucose Calcium 9.2 Total Bilirubin 0.4 AST 15 ALT 11 Alkaline Phosphatase 66 Troponin T Total Protein 7.2 Albumin 4.5 Globulin 2.7 Albumin/Globulin Ratio 1.7 Triglycerides Cholesterol LDL Cholesterol, Calc Non-HDL Cholesterol HDL Cholesterol Urine Color Urine Appearance Urine pH Ur Specific [place] Urine Protein Urine Glucose (UA) Urine Ketones Urine Occult Blood Urine Nitrate Urine Bilirubin Urine Urobilinogen Ur Leukocyte Esterase Ur Culture Indicated? Discharge Plan Patient/Caregiver Discharge Instructions Activity: increase activity as tolerated Diet: Cardiac Instructions: Apixaban (By mouth), Transient Ischemic Attack (GEN), Heart Healthy Diet (GEN) Prescriptions: New Eliquis 5 mg Tablet 5 mg PO BID Qty: 60 RF: 0 Continued dutasteride 0.5 mg capsule 0.5 mg PO QDAY Qty: 90 RF: 1 isosorbide mononitrate 30 mg tablet extended release 24 hr 30 mg PO QDAY Qty: 90 RF: 1 metformin 500 mg tablet extended release 24hr 1,000 mg PO BID Qty: 360 RF: 1 cyanocobalamin (vitamin B-12) 1,000 mcg capsule 1,000 mcg PO QDAY Qty: 30 RF: 2 simvastatin 40 mg tablet 40 mg PO QHS Qty: 90 RF: 1 glipizide 10 mg tablet 20 mg PO BID Qty: 360 RF: 1 pioglitazone 15 mg tablet 15 mg PO QDAY Qty: 90 RF: 1 tamsulosin 0.4 mg capsule 0.8 mg PO HS RF: 0 Changed carvedilol 25 mg tablet 25 mg PO BID Qty: 270 RF: 1 Discontinued warfarin 5 mg tablet See Rx Instructions mg .ROUTE .COMPLEX RF: 0 Follow Up Plan Follow up with: Alejanrdo Rivas MD [Primary Care Provider] - 10/17/20 10:00 am (Please check in at 9:45 am This appointment is with Dr. Barker) Patient Disposition: Home, Self-Care Prognosis: Fair Overall status at discharge: patient is progressing back to baseline Discharge Orders: Discharge Order (Routine); Ordered 10/11/20 Ordered By: Ovidio Roche [facility] VTE Deep Vein Thrombosis/Pulmonary Embolism Present on Admission: No
[2020-10-10] MEDS: CARVEDILOL 6.25 MG TABLET PO SCH (17:04)
[2020-10-10] MEDS: ATORVASTATIN 40 MG TABLET PO SCH (20:36)
[2020-10-10] MEDS ORDERED: TAMSULOSIN 0.4 MG CAPSULE PO SCH (21:00)
[2020-10-10] MEDS ORDERED: SIMVASTATIN 40 MG TABLET PO SCH (21:00)
--- NOTE | 2020-10-10 21:14 | EKG ---
[facility] Test Date: 2020-10-09 Pat Name: Lalo Stern Department: ED Room: Gender: Male Management Associate: MARCUS : 1940 Requested By: Lew Maier Order Number: [id number] Reading MD: Dusty Schaffer M.D. Measurements Intervals [place] Rate: 82 P: 0 CT: 192 QRS: -58 QRSD: 92 T: 34 QT: 380 QTc: 444 Interpretive Statements SINUS RHYTHM ATRIAL PREMATURE COMPLEX LAD, CONSIDER LAFB NO PRIOR TRACING FOR COMPARISON ABNORMAL ECG Electronically Signed On 10-10-2020 21:14:15 PDT by Dusty Schaffer M.D. /store/[email or web address]/[id number]
[2020-10-11] MEDS: INSULIN LISPRO 1 UNIT/0.01 ML UNIT SQ SCH ×2 (01:37→07:41)
[2020-10-11] MEDS: 0.9 % SODIUM CHLORIDE 10 ML SYRINGE IV SCH (06:41)
[2020-10-11] MEDS: metFORMIN 500 MG TAB.XL.24H PO SCH (06:51)
[2020-10-11] MEDS: glipiZIDE 5 MG TABLET PO SCH (07:36)
[2020-10-11] MEDS: DUTASTERIDE 0.5 MG CAPSULE PO SCH (08:26)
[2020-10-11] MEDS: CYANOCOBALAMIN (VITAMIN B-12) 500 MCG TABLET PO SCH (08:27)
[2020-10-11] MEDS: ISOSORBIDE MONONITRATE 30 MG TAB.XL.24H PO SCH (08:27)
[2020-10-11] MEDS: PIOGLITAZONE 15 MG TABLET PO SCH (08:27)
[2020-10-11] MEDS: CARVEDILOL 6.25 MG TABLET PO SCH (08:27)
[2020-10-11] MEDS: APIXABAN 5 MG TABLET PO SCH (08:27)
== END 2020-10-11 10:41 | disposition home or self-care (01) | DRG 69 ==
LOC: ED 17:49 → ICU 22:03
PROVIDERS: ADMIT Internal Medicine; ATTEND Internal Medicine

== ENCOUNTER 2024-01-07 14:39 | Inpatient (IN) ==
[2024-01-07] MEDS ORDERED: IOPAMIDOL 100 ML BOTTLE IV ONE (14:40)
[2024-01-07] MEDS: 0.9 % SODIUM CHLORIDE 1,000 ML IV ONE (15:23)
[2024-01-07 16:05] LABS: Basophils # (Auto) 0.06 K/mcL (0.00-0.30); Basophils % (Auto) 0.8 % (0.0-2.0); Eosinophils # (Auto) 0.08 K/mcL (0.00-0.70); Eosinophils % (Auto) 1.1 % (0.0-7.0); Hemoglobin 11.6 g/dL (13.7-17.5); Lymphocytes % (Auto) 20.5 % (15.5-49.0); Mean Cell Volume 90.7 fL (80.0-100.0); Mean Corpuscular HGB Conc 34.1 g/dL (31.0-36.0); Mean Platelet Volume 10.3 fL (8.8-12.5); Monocytes # (Auto) 0.97 K/mcL (0.10-0.90); Monocytes % (Auto) 13.3 % (1.0-12.0); Neutrophils % (Auto) 64.2 % (38.0-78.0); Platelet Count 135 K/mcL (140-440); RBC 3.75 M/mcL (4.63-6.08); Red Cell Distribution Width 12.9 % (11.5-14.5); WBC 7.3 K/mcL (4.5-11.0)
[2024-01-07 16:10] LABS: INR 1.2 (0.9-1.1); Prothrombin Time 15.3 sec (11.9-14.5)
[2024-01-07 16:22] LABS: ALT/SGPT 16 U/L (<40); AST/SGOT 17 U/L (<40); Albumin/Globulin Ratio 1.3 (1.0-2.3); Alkaline Phosphatase 43 U/L (39-117); Bilirubin,Total 0.9 mg/dL (0.1-1.0); Blood Urea Nitrogen 33 mg/dL (8-23); Calcium 9.1 mg/dL (8.6-10.4); Carbon Dioxide 23 mmol/L (22-30); Chloride 94 mmol/L (96-108); Glomerular Filtration Rate 38; Glucose 274 mg/dL (70-105); Potassium 4.1 mmol/L (3.3-5.1); Sodium 132 mmol/L (133-145)
[2024-01-07 16:27] LABS: Thyroid Stimulating Hormone 0.53 uIU/mL (0.27-5.01)
[2024-01-07] MEDS: METOPROLOL TARTRATE 5 MG/5 ML VIAL IV ONE ×3 (16:31→17:40)
[2024-01-07 16:49] LABS: Appearance,Urine Clear (Clear); Bilirubin,Urine Negative (Negative); Color,Urine Yellow; Glucose,Urine (UA) 250 mg/dL (Negative); Ketones,Urine 15 mg/dL (Negative); Leukocyte Esterase,Urine Negative /uL (Negative); Nitrate,Urine Negative (Negative); Protein,Urine >=300 mg/dL (Negative); Specific Gravity,Urine 1.025 (1.000-1.035); Urine Blood Small ery/mcL (Negative); Urine RBC 0 /hpf (0-3); Urine Squamous Epithelial Cell 0 /hpf (0-4); Urine WBC 0 /hpf (0-4); Urobilinogen,Urine Normal
[2024-01-07 17:16] LABS: Free T4 (Free Thyroxine) 1.46 ng/dL (0.93-1.70)
[2024-01-07] MEDS: ACETAMINOPHEN 1,000 MG/100 ML BAG IV ONE (18:13)
[2024-01-07] MEDS: DILTIAZEM 25 MG/5 ML VIAL IV ONE (18:42)
[2024-01-07 20:28] LABS: Band Neutrophils % 2 % (0-10); Eosinophils % (Manual) 1 % (0-7); Lymphocytes % 21 % (15-49); Monocytes % (Manual) 9 % (1-12); Platelet Estimate NORMAL (Normal); RBC Morphology NORMAL (Normal); Segmented Neutrophils % 67 % (38-78)
[2024-01-07 20:58] LABS: C-Reactive Protein 0.44 mg/dL (0.03-0.80)
[2024-01-07] MEDS ORDERED: IPRATROPIUM/ALBUTEROL 3 ML AMPUL.NEB NEB PRN (21:22)
[2024-01-07] MEDS ORDERED: SENNOSIDES 1 TABLET PO PRN (21:22)
[2024-01-07] MEDS ORDERED: DILTIAZEM 125 MG in DEXTROSE 5% IN WATER 100 ML IV PRN (21:22)
[2024-01-07] MEDS ORDERED: DEXTROSE 50% 50 ML VIAL IV PRN (21:22)
[2024-01-07] MEDS ORDERED: DEXTROSE 31 GM ORAL.SUSP PO PRN (21:22)
[2024-01-07] MEDS ORDERED: MAGNESIUM SULFATE 2 GM/50 ML BAG IV PRN (21:22)
[2024-01-07] MEDS ORDERED: METOCLOPRAMIDE 10 MG/2 ML VIAL IV PRN (21:22)
[2024-01-07] MEDS ORDERED: ACETAMINOPHEN 160 MG/5 ML ORAL.SOL PO PRN (21:22)
[2024-01-07] MEDS ORDERED: POTASSIUM CHLORIDE 40 MEQ in DEXTROSE 5% IN WATER 500 ML IV PRN (21:22)
[2024-01-07] MEDS ORDERED: ONDANSETRON 4 MG/2 ML VIAL IV PRN (21:22)
[2024-01-07] MEDS ORDERED: POTASSIUM CHLORIDE 20 MEQ TABLET PO PRN ×2 (21:22)
[2024-01-07] MEDS ORDERED: ACETAMINOPHEN 325 MG TABLET PO PRN (21:29)
[2024-01-07] MEDS: 0.9 % SODIUM CHLORIDE 1,000 ML IV SCH (21:47)
[2024-01-07] MEDS: ENOXAPARIN 80 MG/0.8 ML SYRINGE SQ ONE (21:47)
[2024-01-07] MEDS: INSULIN LISPRO 1 UNIT/0.01 ML UNIT SQ SCH (21:47)
[2024-01-07] MEDS: CARVEDILOL 6.25 MG TABLET PO SCH (21:47)
[2024-01-07] MEDS: METOPROLOL TARTRATE 5 MG/5 ML VIAL IV PRN (22:03)
[2024-01-08 05:54] LABS: Basophils # (Auto) 0.04 K/mcL (0.00-0.30); Basophils % (Auto) 0.7 % (0.0-2.0); Eosinophils # (Auto) 0.09 K/mcL (0.00-0.70); Eosinophils % (Auto) 1.6 % (0.0-7.0); Hemoglobin 10.9 g/dL (13.7-17.5); Lymphocytes # (Auto) 1.48 K/mcL (1.50-4.80); Mean Cell Volume 94.8 fL (80.0-100.0); Monocytes # (Auto) 0.72 K/mcL (0.10-0.90); Monocytes % (Auto) 12.6 % (1.0-12.0); Neutrophils % (Auto) 59.1 % (38.0-78.0); Platelet Count 120 K/mcL (140-440); RBC 3.48 M/mcL (4.63-6.08); Red Cell Distribution Width 12.9 % (11.5-14.5); WBC 5.7 K/mcL (4.5-11.0)
[2024-01-08 06:21] LABS: ALT/SGPT 15 U/L (<40); AST/SGOT 14 U/L (<40); Albumin 3.6 gm/dL (3.2-5.2); Albumin/Globulin Ratio 1.3 (1.0-2.3); Alkaline Phosphatase 38 U/L (39-117); Bilirubin,Direct 0.2 mg/dL (<0.3); Bilirubin,Total 0.7 mg/dL (0.1-1.0); Blood Urea Nitrogen 29 mg/dL (8-23); Calcium 8.7 mg/dL (8.6-10.4); Carbon Dioxide 23 mmol/L (22-30); Chloride 98 mmol/L (96-108); Globulin 2.7 gm/dL (2.2-3.7); Glomerular Filtration Rate 45; Glucose 182 mg/dL (70-105); Lactate Dehydrogenase 181 U/L (135-225); Phosphorous 3.1 mg/dL (2.5-4.5); Potassium 3.7 mmol/L (3.3-5.1); Sodium 134 mmol/L (133-145); Triglycerides 151 mg/dL (<150); Uric Acid 5.4 mg/dL (2.5-8.0)
[2024-01-08] MEDS: ISOSORBIDE MONONITRATE 30 MG TAB.XL.24H PO SCH (08:03)
[2024-01-08] MEDS: DUTASTERIDE 0.5 MG CAPSULE PO SCH (08:03)
[2024-01-08] MEDS: CARVEDILOL 12.5 MG TABLET PO SCH (08:03)
[2024-01-08 08:07] LABS: INR 1.2 (0.9-1.1); Prothrombin Time 15.3 sec (11.9-14.5)
[2024-01-08] MEDS: ENOXAPARIN 60 MG/0.6 ML SYRINGE SQ SCH (09:21)
[2024-01-08] MEDS: WARFARIN 5 MG TABLET PO ONE (14:17)
[2024-01-08] MEDS: METOPROLOL TARTRATE 25 MG TABLET PO SCH (17:27)
[2024-01-08] MEDS: ENOXAPARIN 80 MG/0.8 ML SYRINGE SQ SCH (20:50)
[2024-01-08] MEDS: TAMSULOSIN 0.4 MG CAPSULE PO SCH (20:51)
[2024-01-08] MEDS: SIMVASTATIN 40 MG TABLET PO SCH (20:51)
[2024-01-08] MEDS: 0.9 % SODIUM CHLORIDE 10 ML SYRINGE IV SCH (20:52)
[2024-01-09 06:13] LABS: Basophils # (Auto) 0.05 K/mcL (0.00-0.30); Basophils % (Auto) 0.8 % (0.0-2.0); Eosinophils # (Auto) 0.13 K/mcL (0.00-0.70); Hematocrit 28.9 % (40.1-51.0); Hemoglobin 10.2 g/dL (13.7-17.5); Lymphocytes # (Auto) 1.78 K/mcL (1.50-4.80); Lymphocytes % (Auto) 27.6 % (15.5-49.0); Mean Cell Volume 88.9 fL (80.0-100.0); Mean Corpuscular HGB Conc 35.3 g/dL (31.0-36.0); Mean Platelet Volume 10.2 fL (8.8-12.5); Monocytes # (Auto) 0.56 K/mcL (0.10-0.90); Monocytes % (Auto) 8.7 % (1.0-12.0); Neutrophils % (Auto) 60.6 % (38.0-78.0); Platelet Count 118 K/mcL (140-440); RBC 3.25 M/mcL (4.63-6.08); Red Cell Distribution Width 12.7 % (11.5-14.5); WBC 6.5 K/mcL (4.5-11.0)
[2024-01-09 06:24] LABS: INR 1.3 (0.9-1.1); Prothrombin Time 16.3 sec (11.9-14.5)
[2024-01-09 06:50] LABS: ALT/SGPT 12 U/L (<40); AST/SGOT 14 U/L (<40); Albumin 3.5 gm/dL (3.2-5.2); Albumin/Globulin Ratio 1.4 (1.0-2.3); Alkaline Phosphatase 37 U/L (39-117); Bilirubin,Direct 0.2 mg/dL (<0.3); Bilirubin,Total 0.6 mg/dL (0.1-1.0); Blood Urea Nitrogen 28 mg/dL (8-23); Calcium 8.5 mg/dL (8.6-10.4); Carbon Dioxide 19 mmol/L (22-30); Chloride 97 mmol/L (96-108); Globulin 2.5 gm/dL (2.2-3.7); Glomerular Filtration Rate 45; Glucose 154 mg/dL (70-105); Lactate Dehydrogenase 188 U/L (135-225); Phosphorous 3.2 mg/dL (2.5-4.5); Potassium 3.7 mmol/L (3.3-5.1); Sodium 132 mmol/L (133-145); Triglycerides 132 mg/dL (<150); Uric Acid 5.2 mg/dL (2.5-8.0)
[2024-01-09] MEDS: POLYETHYLENE GLYCOL 3350 17 GM PACKET PO PRN (08:17)
[2024-01-09] MEDS: SENNOSIDES 1 TABLET PO PRN (09:52)
[2024-01-09] MEDS: POLYETHYLENE GLYCOL 3350 17 GM PACKET PO ONE (09:52)
[2024-01-09] MEDS: METOPROLOL TARTRATE 25 MG TABLET PO ONE (09:52)
[2024-01-09] MEDS: FLU VACC TS2024-25(65YR UP)/PF 180 MCG/0.5 ML SYRINGE IM ONE (09:53)
[2024-01-09] MEDS: WARFARIN 5 MG TABLET PO ONE (13:52)
[2024-01-09] MEDS: INSULIN LISPRO 1 UNIT/0.01 ML UNIT SQ SCH (16:52)
[2024-01-09] MEDS: ENOXAPARIN 80 MG/0.8 ML SYRINGE SQ SCH (20:26)
[2024-01-09] MEDS: METOPROLOL TARTRATE 25 MG TABLET PO SCH (20:27)
[2024-01-09] MEDS: INSULIN GLARGINE, HUMAN 1 UNIT/0.01 ML SQ ONE (21:45)
[2024-01-10] MEDS: INSULIN GLARGINE, HUMAN 1 UNIT/0.01 ML SQ ONE (00:35)
[2024-01-10 06:21] LABS: Basophils # (Auto) 0.06 K/mcL (0.00-0.30); Eosinophils # (Auto) 0.18 K/mcL (0.00-0.70); Eosinophils % (Auto) 3.1 % (0.0-7.0); Hematocrit 29.8 % (40.1-51.0); Hemoglobin 9.8 g/dL (13.7-17.5); Lymphocytes # (Auto) 1.44 K/mcL (1.50-4.80); Lymphocytes % (Auto) 24.8 % (15.5-49.0); Mean Cell Volume 94.6 fL (80.0-100.0); Mean Corpuscular HGB Conc 32.9 g/dL (31.0-36.0); Mean Platelet Volume 10.4 fL (8.8-12.5); Monocytes % (Auto) 6.9 % (1.0-12.0); Platelet Count 134 K/mcL (140-440); RBC 3.15 M/mcL (4.63-6.08); Red Cell Distribution Width 12.9 % (11.5-14.5); WBC 5.8 K/mcL (4.5-11.0)
[2024-01-10 06:30] LABS: ALT/SGPT 12 U/L (<40); AST/SGOT 11 U/L (<40); Albumin 3.3 gm/dL (3.2-5.2); Albumin/Globulin Ratio 1.4 (1.0-2.3); Alkaline Phosphatase 38 U/L (39-117); Bilirubin,Direct < 0.2 mg/dL (0-0.3); Bilirubin,Total 0.5 mg/dL (0.1-1.0); Blood Urea Nitrogen 33 mg/dL (8-23); Calcium 8.5 mg/dL (8.6-10.4); Carbon Dioxide 21 mmol/L (22-30); Chloride 95 mmol/L (96-108); Globulin 2.4 gm/dL (2.2-3.7); Glomerular Filtration Rate 49; Glucose 128 mg/dL (70-105); Lactate Dehydrogenase 155 U/L (135-225); Phosphorous 3.9 mg/dL (2.5-4.5); Potassium 3.6 mmol/L (3.3-5.1); Sodium 129 mmol/L (133-145); Triglycerides 103 mg/dL (<150); Uric Acid 5.2 mg/dL (2.5-8.0)
[2024-01-10 06:45] LABS: INR 1.4 (0.9-1.1); Prothrombin Time 17.7 sec (11.9-14.5)
[2024-01-10] MEDS: SODIUM CHLORIDE 1 GM TABLET PO ONE (07:59)
[2024-01-10] MEDS: 0.9 % SODIUM CHLORIDE 1,000 ML IV SCH ×2 (08:08→16:16)
[2024-01-10] MEDS: ISOSORBIDE MONONITRATE 30 MG TAB.XL.24H PO SCH (10:15)
[2024-01-10 13:19] LABS: Blood Urea Nitrogen 31 mg/dL (8-23); Calcium 8.3 mg/dL (8.6-10.4); Carbon Dioxide 22 mmol/L (22-30); Chloride 94 mmol/L (96-108); Glomerular Filtration Rate 45; Glucose 365 mg/dL (70-105); Potassium 3.8 mmol/L (3.3-5.1); Sodium 127 mmol/L (133-145)
[2024-01-10] MEDS: METOPROLOL TARTRATE 50 MG TABLET PO ONE (13:20)
[2024-01-10] MEDS: WARFARIN 5 MG TABLET PO ONE (15:18)
[2024-01-10] MEDS: INSULIN REGULAR, HUMAN 1 UNIT/0.01 ML UNIT IV ONE (15:18)
[2024-01-10] MEDS: 0.9 % SODIUM CHLORIDE 500 ML IV ONE (15:20)
[2024-01-10] MEDS: INSULIN LISPRO 1 UNIT/0.01 ML UNIT SQ SCH (17:17)
[2024-01-10 18:03] LABS: Blood Urea Nitrogen 32 mg/dL (8-23); Calcium 8.6 mg/dL (8.6-10.4); Carbon Dioxide 21 mmol/L (22-30); Chloride 97 mmol/L (96-108); Glomerular Filtration Rate 49; Glucose 197 mg/dL (70-105); Potassium 3.7 mmol/L (3.3-5.1); Sodium 131 mmol/L (133-145)
[2024-01-10] MEDS: INSULIN GLARGINE, HUMAN 1 UNIT/0.01 ML SQ SCH (21:04)
[2024-01-10] MEDS: SODIUM CHLORIDE 1 GM TABLET PO SCH (21:10)
[2024-01-10] MEDS: METOPROLOL TARTRATE 25 MG TABLET PO SCH (21:10)
[2024-01-11 06:25] LABS: Basophils # (Auto) 0.05 K/mcL (0.00-0.30); Basophils % (Auto) 0.9 % (0.0-2.0); Eosinophils # (Auto) 0.19 K/mcL (0.00-0.70); Eosinophils % (Auto) 3.5 % (0.0-7.0); Hematocrit 29.9 % (40.1-51.0); Hemoglobin 9.7 g/dL (13.7-17.5); Lymphocytes # (Auto) 1.17 K/mcL (1.50-4.80); Lymphocytes % (Auto) 21.8 % (15.5-49.0); Mean Cell Volume 95.8 fL (80.0-100.0); Mean Corpuscular HGB Conc 32.4 g/dL (31.0-36.0); Mean Platelet Volume 10.2 fL (8.8-12.5); Monocytes # (Auto) 0.38 K/mcL (0.10-0.90); Monocytes % (Auto) 7.1 % (1.0-12.0); Neutrophils % (Auto) 66.5 % (38.0-78.0); Platelet Count 142 K/mcL (140-440); RBC 3.12 M/mcL (4.63-6.08); WBC 5.4 K/mcL (4.5-11.0)
[2024-01-11 06:45] LABS: ALT/SGPT 13 U/L (<40); AST/SGOT 13 U/L (<40); Albumin 3.3 gm/dL (3.2-5.2); Albumin/Globulin Ratio 1.5 (1.0-2.3); Alkaline Phosphatase 39 U/L (39-117); Bilirubin,Direct < 0.2 mg/dL (0-0.3); Bilirubin,Total 0.4 mg/dL (0.1-1.0); Blood Urea Nitrogen 28 mg/dL (8-23); Calcium 8.2 mg/dL (8.6-10.4); Carbon Dioxide 20 mmol/L (22-30); Chloride 101 mmol/L (96-108); Globulin 2.2 gm/dL (2.2-3.7); Glomerular Filtration Rate 54; Glucose 159 mg/dL (70-105); Lactate Dehydrogenase 149 U/L (135-225); Phosphorous 3.6 mg/dL (2.5-4.5); Sodium 135 mmol/L (133-145); Triglycerides 86 mg/dL (<150); Uric Acid 4.8 mg/dL (2.5-8.0)
[2024-01-11 06:53] LABS: INR 1.5 (0.9-1.1); Prothrombin Time 18.9 sec (11.9-14.5)
[2024-01-11] MEDS ORDERED: WARFARIN 5 MG TABLET PO ONE (14:00)
== END 2024-01-11 13:18 | disposition home health service (06) | DRG 309 ==
LOC: ED 14:39 → ICU 14:39
PROVIDERS: ADMIT Internal Medicine; ATTEND Internal Medicine